=== PATIENT | female | born 1995 | race Caucasian/White ===

== ENCOUNTER 2016-09-03 05:03 | Inpatient (IN) | payer OTHER ==
[~2016-09-03] VITALS: Ht 160 cm; Wt 87.5 kg
[2016-09-03] MEDS ORDERED: Hemorrhage Kit, Post Partum XX ONE ×2 (08:20→21:30)
[2016-09-03] MEDS ORDERED: Ondansetron 2 mg/mL 2 mL Inj IVPUSH PRN ×2 (08:20→13:20)
[2016-09-03] MEDS ORDERED: Oxytocin 30 Units/500 mL LR 30 UNITS in IV Premix 1 EACH IV PRN ×2 (08:20→21:30)
[2016-09-03] MEDS ORDERED: Sodium Chloride LOK Flush 10 mL Syringe IVFLUSH PRN (08:20)
[2016-09-03] MEDS ORDERED: Oxytocin 10 Unit/mL Inj IM PRN ×2 (08:20→21:30)
[2016-09-03] MEDS ORDERED: fentaNYL-PF 50 mCg/mL 2 mL Inj IVPUSH PRN (08:20)
[2016-09-03] MEDS ORDERED: Lactated Ringer's 1,000 ML IV PRN (08:20)
[2016-09-03] MEDS ORDERED: Methylergonovine 0.2 mg/mL Inj IM PRN ×2 (08:20→21:30)
[2016-09-03] MEDS ORDERED: Carboprost 250 mCg/mL Inj IM PRN ×2 (08:20→21:30)
[2016-09-03 09:10] LABS: Mean Corpuscular Hemoglobin 27.6 pg (27.0-35.0); Mean Corpuscular Volume 83.7 fL (81-100)
[2016-09-03] MEDS ORDERED: PREN-12 PO (09:10)
--- NOTE | 2016-09-03 09:53 | PCM.HPOB ---
Subjective Referring Provider: Admitting Physician: Lesly Velasquez MD Primary Care Physician: Nopcp Attending Physician: Lesly Velasquez MD Chief Complaint Early labor History of Present History of Present Illness 20 yo at 39 weeks 6 days gestation presents to [facility] the morning of Sep 03 with contractions since 00:30 this morning. She did not feel her water break but feels wet on cervical exam and has confirmed ROM+ test. Cervical exam is relatively unchanged since her check in the office yesterday. Dilated to fingertip, 50% effaced, -3 station, soft, and very posterior. She desires epidural when indicated. She is not experiencing any vision changes or headache. OB History: (1), Para (0) Obstetrical Complications: None Past Medical History Gynecologic History: Chlamydia infection in first trimester, pt and partner treated, test of cure negative. Hx Tobacco Use: No Hx Alcohol Use: No Hx Substance Use: No Review of Systems Constitutional: Y: Dizziness, Weakness Eyes: Denies: Vision Changes Cardiovascular: Reports: Edema Respiratory: Denies: Cough Gastrointestinal: Denies: Nausea, Vomiting Allergy Coded Allergies: No Known Allergies (Unverified , 09/03/16) Exam Constitutional: Well-developed, Well-nourished HEENT: Atraumatic Lungs: Clear to Auscultation, Normal Air Movement Heart: Regular Rate/Rhythm, No Murmurs/Rubs/Gallops Abdomen: Gravid, No tenderness Extremities: Edema (+1) Neurological/Psychiatric: Alert, Oriented X3, Cooperative Neuro: Grossly Neurologically Intact Labs/Diagnostics Labs Blood type A+, antibody screen negative, GBS negative, Rubella equivocal, RPR non reactive, HBsAg negative, Hep C negative, HIV non reactive. Varicella Immune , HgbA1C 5.0, GC/CT negative, toxoplasmosis negative Ultra Sound Anatomy US normal Maternal Blood Type: A (+) Hx Rho(D) Immune Globulin: No Antibody Screen: neg Group B Strep Results: Negative Previous Infant with GBS: No Rubella: Equivocal OB Intrapartum Assessment/Plan Assessment 20 yo at 39 weeks 6 days gestation in early labor carroll every 2-5 minutes Pain Management: Epidural when desired and appropriate. Intrapartum plan Continue with expectant management. Augmentation of labor if necessary. Post plan: Continue routine post care Attending Statement at 39 weeks 6 days PROM. category 1 tracing. Will consider pitocin induction. ANAHI DE LA PAZ DO Sep 03, 2016 08:26 Lesly Velasquez MD Sep 03, 2016 17:14
--- NOTE | 2016-09-03 10:46 | PCM.PNOBIP ---
Subjective Date of Service Sep 03, 2016 Delivery plan: Spontaneous Vaginal Delivery Visit History 20 yo at 39 weeks 6 days gestation presents to [facility] the morning of Sep 03 with contractions since 00:30 this morning. She did not feel her water break but feels wet on cervical exam and has confirmed ROM+ test - so likely ROM around 7am. Subjective Feeling uncomfortable with continued contractions. No desired epidural yet. Group B Strep Results: Negative Rubella: Equivocal Blood Type: A (+) Labs Laboratory Tests 09/03/16 08:21: Hold Purple Top Tube Received 09/03/16 09:08: White Blood Count 13.8, Red Blood Count 4.17, Hemoglobin 11.5, Hematocrit 34.9, Mean Corpuscular Volume 83.7, Mean Corpuscular Hemoglobin 27.6, Mean Corpuscular Hemoglobin Concent 33.0, Red Cell Distribution Width 13.7, Platelet Count 268 Exam Vital Signs Vital Signs Contraction frequency in minutes: MVUs: Vital Signs: VS reviewed, stable (122/76 88 36.7) Heart Tracings Heart Tones Baseline 150 bpm Heart Rate Variability: Moderate Heart Rate Accelleration: Present Heart Rate Deceleration: Present (Variable < 1min with AROM with moderate variability and return to baseline.) Heart Rate Category: II Tocometry/IUPC Contraction frequency in minutes: MVUs: Sterile Vaginal Exam 1.5cm/80%/-3/soft/posterior. Forebag noted and ruptured with clear fluid noted. Exam General: Alert, Oriented X3, Cooperative Additional Information Bedside ultrasound confirms vertex presentation. OB Intrapartum Assessment/Plan Assessment 20 yo at 39 weeks 6 days gestation in labor with SROM of clear fluids Problems: (1) Active labor at term Status: Acute ICD Code: [id number] Intrapartum plan: Continue expected management Sundeep Fair MD Sep 03, 2016 10:46
[2016-09-03] MEDS ORDERED: Lactated Ringer's 500 ML IV ONE (13:17)
[2016-09-03] MEDS ORDERED: Lactated Ringer's 1,000 ML IV SCH ×2 (13:17→21:30)
--- NOTE | 2016-09-03 13:17 | PCM.HPANE ---
Patient Data Surgeon Admitting Provider:Lesly Velasquez MD Attending Provider:Lesly Velasquez MD Primary Care Physician:Priscilla Other Provider:Altagracia Ferro Anesthesia Reason for Visit Term Labor Check TERM LABOR CHECK Ht/WT & BMI Body Mass Index Allergies Coded Allergies: No Known Allergies (Unverified , 09/03/16) Medications Reported Medications Vit W-Ca,Fe,FA(<1 mg) ( Formula)1 Each Tablet1 Each PO DAILY 09/03/16 History Hx Alcohol Use: NoHx Substance Use: No Smoking Status: Never Smoker Stop/Bang Risk Assessment Category Category 1A: Patient has history of documented sleep apnea, and HAS NOT received any narcotic, sedative or anesthesia administration during this stay. Category 1B: Patient has history of documented sleep apnea, and HAS received any narcotic , sedative or anesthesia administration during this stay Category 2: Patient has SUSPECTED Obstructive Sleep Apnea, and HAS received any narcotic , sedative or anesthesia administration during this stay. Category 3: Patient has SUSPECTED Obstructive Sleep Apnea and HAS NOT received narcotic, sedative or anesthesia administration during this stay. Category 4: Outpatient in Procedural Areas with known sleep apnea or who screen positive for High Risk via the STOP/BANG questionnaire. Exam Exam General Appearance: Alert, Oriented X3, Cooperative, Moderate Distress HEENT/AIRWAY: MP 2 Lungs: Normal Air Movement Heart: Regular Rate/Rhythm Meds/Labs/Diagnostics Labs Test 09/03/16 08:21 09/03/16 09:08 Hold Purple Top Tube Received (Received) White Blood Count 13.8th/mm3 (3.8-10.1) Red Blood Count 4.17mil/mm3 (3.90-5.20) Hemoglobin 11.5g/dL (12.0-15.6) Hematocrit 34.9% (35.0-46.0) Mean Corpuscular Volume 83.7fL (81-100) Mean Corpuscular Hemoglobin 27.6pg (27.0-35.0) Mean Corpuscular Hemoglobin Concent 33.0% (32.0-37.0) Red Cell Distribution Width 13.7% (12.3-15.4) Platelet Count 268bil/L (150-400) Plan Impression Patient chart reviewed, patient interviewed and anesthestic plan with risks, benefits, and alternatives discussed, and informed consent obtained. ASA Physical Status: ASA1 Normal Healthy Anesthetic Plan: Epidural Bene/Risks/Altern/Consents: Yes HP Complete Prior to Induction: Yes Sarita Peña DO Sep 03, 2016 13:17
[2016-09-03] MEDS ORDERED: EPHEDrine Sulfate 50 mg/mL Inj IVPUSH PRN (13:20)
[2016-09-03] MEDS ORDERED: Atropine 1 mg/10 mL (Code) Syringe IVPUSH PRN (13:20)
[2016-09-03] MEDS ORDERED: fentaNYL 2 mCg/mL-Bupiv 0.125% 100 ML EPIDURAL SCH (13:20)
[2016-09-03] MEDS ORDERED: Benzocaine (Dermoplast) 20% 60 Gm Spray TOPICAL PRN (21:30)
[2016-09-03] MEDS ORDERED: LANOlin HPA 7 Gm Ointment TOPICAL PRN (21:30)
[2016-09-03] MEDS ORDERED: Witch Hazel-Glycerin Pads TOPICAL PRN (21:30)
[2016-09-04 06:28] LABS: Mean Corpuscular Hemoglobin 27.3 pg (27.0-35.0); Mean Corpuscular Volume 83.5 fL (81-100)
[2016-09-04] MEDS ORDERED: Measles-Mumps-Rubella Vaccine 0.5 mL Inj SUBQ ONE (08:30)
[2016-09-04] MEDS ORDERED: DOCU-41 PO (14:35)
[2016-09-04] MEDS ORDERED: IBUP-1827 PO (14:35)
--- NOTE | 2016-09-04 14:48 | PCM.DIOB ---
Obstetrical Disch Instruction Date of Service: Sep 04, 2016 Dates of Hospitalization Date of Hospital Admission Sep 03, 2016 at 07:37 Providers Admitting Physician: Lesly Velasquez MD Primary Care Physician: Priscilla Attending Physician: Lesly Velasquez MD Discharge Diagnosis Discharge Diagnosis Normal Spontaneous Vaginal Delivery Post Operative diagnosis Normal Spontaneous Vaginal Delivery Problems: (1) Active labor at term Status: Resolved ICD Code: [id number] Diet Discharge Diet: No restrictions Activity Discharge Activity-General: Pelvic Rest for 6 weeks, Balance rest and activity Dressing and Incisional Care Hygiene: May shower Additional Instructions Discharge Instructions Continue your vitamin. You may have constipation so you have also been given a prescription for docusate to keep you regular. Be sure to follow up in 6 weeks at [facility]. Pelvic rest for 6 weeks (nothing per vagina including intercourse, tampons) If you have a fever greater than 100.4, please call [facility]. There is always someone implementation project coordinator to talk to. If you have an increase in bleeding, call [facility]. If you have a lot of bleeding suddenly, especially if you have symptoms of dizziness & weakness with it, get emergency help. If you start experiencing extreme depression, especially if you feel that you are a danger to yourself or your family, seek emergency help. You have been through a lot -- BE SURE TO TAKE CARE OF YOURSELF. Follow Up Plan Follow-up Provider (F9): Lesly Velasquez MD Follow-up appointment: Weeks (6) Call your provider for: Fever or Chills, Shortness of breath, Heavy vaginal bleeding, Epigastric pain, Vaginal discomfort, Red painful breasts ANAHI DE LA PAZ DO Sep 04, 2016 14:48
--- NOTE | 2016-09-04 15:34 | PCM.PNOBPP ---
Subjective Date of Service Sep 04, 2016 Post : Spontaneous Vaginal Delivery Subjective 20 yo at 39 weeks 6 days gestation was admitted to [facility] the morning of Sep 03 with contractions. She likely had SROM around 0700 confirmed by a ROM+ positive test. Labor progressed and she delivered via at 1800. She did well overnight. This morning she is having normal lochia, feels sore but ibuprofen helps. She is breast feeding and plans to use the Mirena IUD for control post . She is not experiencing any vision changes, epigastric pain or headache. Lochia: Normal Pain Management: PO pain meds, Good Pain Control Gastrointestinal: Passing Flatus Postop Activity: Ambulating Independently Group B Strep Results: Negative Rubella: Equivocal Blood Type: A (+) RH Type: Positive Labs Laboratory Tests 09/03/16 08:21: Hold Purple Top Tube Received 09/04/16 05:45: White Blood Count 20.2, Red Blood Count 3.81, Hemoglobin 10.4, Hematocrit 31.8, Mean Corpuscular Volume 83.5, Mean Corpuscular Hemoglobin 27.3, Mean Corpuscular Hemoglobin Concent 32.7, Red Cell Distribution Width 14.0, Platelet Count 265 Exam Vital Signs Vital Signs BP 110/59 HR 96 98% O2 sat R 20 Vital Signs: VS reviewed, stable Exam Abdomen: Fundus firm : Voiding without difficulty Extremities: Edema 1+ Lungs: Clear to Auscultation, Normal Air Movement Heart: Regular Rate/Rhythm, No Murmurs/Rubs/Gallops General: Alert, Oriented X3, Cooperative, No Acute Distress OB Post Assessment/Plan Assessment 20 yo at 39 weeks 6 days gestation was admitted to [facility] the morning of Sep 03 with contractions. She likely had SROM around 0700 confirmed by a ROM+ positive test. Labor progressed and she delivered via at 1800. Meeting goals. Rubella equivocal will receive MMR vaccine before departure. Problems: (1) Vaginal delivery Plan: Routine care Status: Acute ICD Code: O80 (2) Active labor at term Status: Resolved ICD Code: [id number] Pain Evaluation: Adequate Pain Control Post plan: Continue routine post care, Discharge to [facility] status Plan: Rubella equivocal, MMR vaccine to be given. Attending Statement The patient was seen and examined together with Dr. Canales on 09/04/2016 and I agree with the history, exam and plan as outlined in the note above. / MD BRAIN Dietrich ERIKA R DO Sep 04, 2016 13:47 Sundeep Fair MD Sep 23, 2016 17:08
--- NOTE | 2016-09-04 15:40 | PCM.DC.OB ---
Obstetrical Discharge Summary Date of Service Sep 04, 2016 Date of hospital admission Sep 03, 2016 at 07:37 Date of Discharge: Sep 04, 2016 Providers Admitting Physician: Lesly Velasquez MD Primary Care Physician: Priscilla Attending Physician: Lesly Velasqeuz MD Diagnosis at Time of Discharge Normal Spontaneous Vaginal Deilvery Problems: (1) Vaginal delivery Status: Acute ICD Code: O80 (2) Active labor at term Status: Resolved ICD Code: [id number] Invasive procedures Normal Spontaneous Vaginal Deilvery Date of Procedure: Sep 03, 2016 Brief History and Physical: HPI at time of admission: 20 yo at 39 weeks 6 days gestation presents to [facility] the morning of Sep 03 with contractions since 00:30 this morning. She did not feel her water break but feels wet on cervical exam and has confirmed ROM+ test. Cervical exam is relatively unchanged since her check in the office yesterday. Dilated to fingertip, 50% effaced, -3 station, soft, and very posterior. She desires epidural when indicated. She is not experiencing any vision changes or headache. Exam on day of discharge: vital signs stable and normal, well-nourished well- appearing, heart regular rate and rhythm no murmurs, lungs clear to auscultation bilaterally with good air movement. Abdomen soft, uterine fundus firm. +1 edema in bilateral lower extremities. Appropriate mood and affect. Hospital Course: 20 yo at 39 weeks 6 days gestation was admitted to [facility] the morning of Sep 03 with contractions. She likely had SROM around 0700 confirmed by a ROM+ positive test. Labor progressed and she delivered via at 1800. She did well overnight and throughout the day. Mother discharged in stable condition to [facility]. Docusate Sodium (Colace) 100 Mg Capsule 100 MG PO DAILY PRN PRN For Constipation Prescribed by: ANAHI DE LA PAZ DO Ibuprofen (Ibuprofen) 600 Mg Tablet 600 MG PO Q6H PRN PRN For Mild Pain Prescribed by: ANAHI DE LA PAZ DO Vit W-Ca,Fe,FA(<1 mg) ( Formula) 1 Each Tablet 1 EACH PO DAILY (Reported) oxyCODONE-Acetaminophen 5-325 mg (oxyCODONE-Acetaminophen 5-325 mg) 1 Each Tablet 1 TAB PO Q6H PRN PRN For Pain Prescribed by: DUONG QUILES DO Disposition Discharge to board[place] status Follow-up plan 6 weeks in [facility]. Discharge Diet: No restrictions Discharge Activity-General: Pelvic Rest for 6 weeks, Balance rest and activity Patient instructions Continue your vitamin. You may have constipation so you have also been given a prescription for docusate to keep you regular. Be sure to follow up in 6 weeks at [facility]. Pelvic rest for 6 weeks (nothing per vagina including intercourse, tampons) If you have a fever greater than 100.4, please call [facility]. There is always someone service operations manager to talk to. If you have an increase in bleeding, call [facility]. If you have a lot of bleeding suddenly, especially if you have symptoms of dizziness & weakness with it, get emergency help. If you start experiencing extreme depression, especially if you feel that you are a danger to yourself or your family, seek emergency help. You have been through a lot -- BE SURE TO TAKE CARE OF YOURSELF. Attending Statement: The patient was seen and examined together with Dr. De La Paz on 09/04/2016 and I agree with the history, exam and plan as outlined in the note above. / MD BRAIN Dietrich ERIKA R DO Sep 04, 2016 15:40 Sundeep Fair MD Sep 23, 2016 17:08
--- NOTE | 2016-09-05 07:56 | PCM.ANEP1 ---
Post Anesthesia Phase 1 PACU Phase 1 Assessment Anesthetic Administered: Epidural Level of Alertness: Awake, talking CHARLTON's with Equal Strength: Yes Pain: No Pain Scale Score: 4 Oxygen Delivery: Room Air Lungs: Clear to Auscultation, Normal Air Movement Sarita Peña DO Sep 05, 2016 07:56
--- NOTE | 2016-09-05 07:56 | PCM.ANEP2 ---
Post Anesthesia Evaluation ASA/CMS Post Anesthesia VS in Patient's Normal Range?: Yes Resp Stable; Airway Patent?: Yes CV Function & Hydration Stable: Yes Mental Status Recovered?: Yes Pain control Satisfactory?: Yes N/V Control Satisfactory?: Yes Sarita Peña DO Sep 05, 2016 07:56
--- NOTE | 2016-10-18 22:18 | OP ---
[address] [address] OPERATIVE REPORT PATIENT: [facility] LEVINE : 1995 MR#: [id number] ADMIT: 09/03/2016 JOB ID: [id number] DATE OF SURGERY: 09/03/2016 DELIVERY SUMMARY: This is a 21-year-old female. She is 1, para 1 now, status post vaginal delivery. The patient presented to [facility] for active labor. She progressed spontaneously and progressed to full dilation at around 5 p.m. During labor, her tracing was reassuring. She got epidural for pain management. Patient had a good effort to push after she was fully dilated. The infant delivered at six o'clock after one hour of pushing. The infant was delivered at vertex position and there was one round nuchal cord which was tight , was clamped and cut during the delivery. Shoulder and chest delivered without difficulty. The score was 6 and 9. After infant delivered, the placenta delivered spontaneously completely, examined, has three-vessel cord. There was no perineal or vaginal laceration. There was 1 cm hematoma, was noticed after delivery. No enlargement with observation. The EBL during delivery was 150 cc. Patient tolerated delivery well. All instrument, needles, laps and gauzes counted correct twice. SURGEON: PREOPERATIVE DIAGNOSIS(ES): POSTOPERATIVE DIAGNOSIS(ES): MTDD
== END 2016-09-04 15:50 | disposition home or self-care (01) | DRG 775 ==
LOC: FBCO 05:03 → FBC 07:37
PROVIDERS: ADMIT Obstetrics & Gynecology; ATTEND Obstetrics & Gynecology
PROC: 10E0XZZ Delivery of Products of Conception, External Approach (ICD-10-PCS; principal; 2016-09-03)
DX: O80 Encounter for full-term uncomplicated delivery (principal); Z3A.39 39 weeks gestation of pregnancy; Z37.0 Single live birth

== ENCOUNTER 2016-09-08 06:25 | Emergency (ER) | payer OTHER ==
[~2016-09-08] VITALS: Ht 160 cm; Wt 81.8 kg
[~2016-09-08 06:25] MED LIST: DOCU-41 PO; IBUP-1827 PO; PREN-12 PO
[2016-09-08 06:28] VITALS: BP 121/87; PULSE 75; RESP 16; O2SAT 98
--- NOTE | 2016-09-08 07:32 | ED.REPORT ---
HPI-General Illness Date of Service Sep 08, 2016 ED Provider: Aneta Damian MD History of Present Illness: Patient is a 20 y.o. F with no prior past medical history presents to ED with for treatment of 3 day history of bilateral breast pain, worse on left. Patient delivered a healthy boy last via vaginal delivery with one nuchal chord. Breast pain began first in left and right breast pain began yesterday. Described as tender, warm, "brests feel like rocks" hard lumps felt in both breasts. Pain 10/10. Associated with blister and redness of breasts and nipples. Not relieved by pumping. Pumpped today and only had 1 ounce out of both brests. Started on Dicloxacillin on Tuesday. Milk produced is white in color, no blood or puss noted. Patient wishes to continue breast feeding up to 6 months. Denies fever, chills, headache, consitpation, diarrhea, dysuria, depression. Nursing Notes Stated Complaint: BREAST PAIN Chief Complaint: General Complaint Nursing Notes Reviewed: Yes Allergies: Coded Allergies: No Known Allergies (Unverified , 09/03/16) Scheduled Vit W-Ca,Fe,FA(<1 mg) ( Formula) 1 Each Tablet 1 EACH PO DAILY Scheduled PRN Docusate Sodium (Colace) 100 Mg Capsule 100 MG PO DAILY PRN PRN For Constipation Ibuprofen (Ibuprofen) 600 Mg Tablet 600 MG PO Q6H PRN PRN For Mild Pain General Time Seen by MD: 07:00 Chief Complaint Other (Bilateral breast pain) Onset Occurred: 3 days ago Symptom Duration: Since onset Location: : Chest (bilateral breast ) Quality: Aching, Dull, Throbbing Severity: Current: Severe Severity: Maximum: Severe Recent Healthcare: Recent hospitalization (Vaginal delivery) Past Medical History Past Medical History Notes: No other reported medical history Past Surgical History no reported surgical history Smoking History Never Smoker Social History Alcohol Use: Denies alcohol use Drug Use: Denies drug use Other Social History: Ambulatory Status Independent Review of Systems Full Review of Systems Constitutional: Denies: Chills, Fatigue, Fever, Lethargy, Malaise Eyes: Denies: Discharge left, Discharge right Ears / Nose / Throat: Reports: Nasal congestion Respiratory: Denies: Dyspnea on exertion, Non-productive cough Cardiovascular: Denies: Chest pain, Dyspnea on exertion GI: Reports: Nausea, Denies: Anorexia, Vomiting Female: Denies: Dysuria, Flank pain, Hematuria Hematologic: Reports Adenopathy Skin: Reports Rash, Reports Swelling Complete sys rev & neg: except as marked. Physical Exam Vital Signs Vital Signs Date Time Temp Pulse Resp B/P Pulse Ox O2 Delivery O2 Flow Rate FiO2 09/08/16 06:28 36.4 75 16 121/87 98 Room Air General/Constitutional: Well-developed, Well-nourished Head / Eyes: Atraumatic, Normocephalic, PERRL Respiratory: Breath sounds normal, Clear to auscultation, No respiratory distress Cardiovascular: Regular rate & rhythm, Heart sounds normal, Intact distal pulses Abdomen / GI: Soft, Non-tender, No guarding, No rebound, No distention Back: No CVA tenderness Extremities: Vascular intact, Neuro intact Skin: Warm, Dry, No cyanosis Neurologic: Alert, Oriented, Nonfocal Psychiatric: Mood/affect normal, Behavior normal, Normal thought content Breast: Positive: Erythema L (minimal), Erythema R (minimal), Skin changes L, Skin changes R (blister of right nipple), Swelling L (severe engorement), Swelling R (severe engorement), Tenderness L, Tenderness R Interpretation & Diagnostics Lab Results Interpretation Result Diagram: 09/08/16 0752 09/08/16 0752 Test 09/08/16 07:52 White Blood Count 10.3th/mm3 (3.8-10.1) Red Blood Count 4.16mil/mm3 (3.90-5.20) Hemoglobin 11.4g/dL (12.0-15.6) Hematocrit 34.8% (35.0-46.0) Mean Corpuscular Volume 83.7fL (81-100) Mean Corpuscular Hemoglobin 27.4pg (27.0-35.0) Mean Corpuscular Hemoglobin Concent 32.8% (32.0-37.0) Red Cell Distribution Width 14.3% (12.3-15.4) Platelet Count 360bil/L (150-400) Neutrophils (%) (Auto) 67.3% (40-74) Lymphocytes (%) (Auto) 17.5% (14-46) Monocytes (%) (Auto) 8.6% (4-12) Eosinophils (%) (Auto) 5.5% (0-5) Basophils (%) (Auto) 0.2% (0-3) Sodium Level 137mEq/L (134-144) Potassium Level 3.9mEq/L (3.5-5.2) Chloride Level 100mEq/L (97-108) Carbon Dioxide Level 21mmol/L (18-29) Blood Urea Nitrogen 9mg/dL (6-20) Creatinine 0.49mg/dL (0.57-1.00) Estimat Glomerular Filtration Rate 228mL/min (>59) Glucose Level 117mg/dL (60-99) Calcium Level 9.2mg/dL (8.5-10.1) Total Bilirubin 0.3mg/dL (0.0-1.2) Aspartate Amino Transf (AST/SGOT) 30U/L (0-50) Alanine Aminotransferase (ALT/SGPT) 28U/L (0-32) Alkaline Phosphatase 104U/L (25-150) Total Protein 7.1g/dL (6.4-8.4) Albumin 3.8g/dL (3.4-5.0) Re-Eval/Medical Decision Med Decision/Clinical Course Patient is a 20 y.o. F with no prior past medical history presents to ED with for treatment of 3 day history of bilateral breast pain, worse on left. There is significant bilateral brest engorgement, little to no let down of milk bilaterally. There are no signs presently of abscess and she is on adequate antibiotic therapy. Patient will likley need consultation and a hospital breast pump to allow for adequate let down. Observe in ED, manage pain, while await lactaion consultaiton and DDx Bilateral mastitis, breast engorgement, abscess, ductal cyst, breast feeding problems, 30 mg IV Ketorlac for pain 1 mg Hydromorphone IV for pain wiht 0.5 mg push Q15 PRN consultation ordered Time of Eval: 09:30 Patient Status: Condition improved Re-Evaluation/Progress Note: Patients pain is undercontrol, V/S stable Discharge & Departure Primary Impression: Mastitis, Additional Impressions: Ineffective breast feeding Encounter for breast feeding counseling Engorgement of breast Disposition: Home Discharge Condition All VS Reviewed: Yes Condition: Stable Additional Instructions: During you visit to [facility] Emergency Department we obtained blood work for infectious markers, hemoglobin levels, and electrolytes. We obtained a consultation and a hospital grade breast pump to help with letdown of breast milk. All your lab values were within normal limits and your imaging showed no acute processes or abnormalities. Your vital signs were stable and safe for discharge. Finish the remainder of your antibiotics as directed. We will send you home with - Continue pain medications given post - 5-325 mg Percocet by mouth every 6 hours as needed for pain. Do not exceed 30 mg per day. The narcotic pain medication is in part secreted through breast milk. As discussed the pain medication's takes approximately 1.5 hours to break down to half of the starting dose. While taking this medication it is recommended you do not breast feed. If you choose to continue breast feeding it is recommended that that you pump and dump up to 8 hours prior to resuming breast feeding. Monitor your child for signs of increased fatigue,breathing difficulty, limpness of extremities. If you notice any of these symptoms stop breast feeding, stop medication, seek emergency medical care. - Referral to outpatient consultation to be completed today. Do not hesitate to call emergency services or your primary care physician if you experience any of the following. - High unrelenting fevers. - Uncontrolled vomiting. - Severe hypertension. - Syncope or loss of consciousness. - Chest pain or severe shortness of breath. Follow up with your primary care physician in 1-2 weeks time following your emergency department visit for medication checks and general well-being. Referrals: OTHER,PHYSICIAN (PCP) (Family) Attending Statement Patient seen and examined. Currently on antibiotics for mastitis which is very appropriate improving. Severe breast engorgement. Pain controlled sent to labor and delivery for consult. Like to nurse for at least 6 months and would like very much be able to support that DUONG QUILES DO Sep 08, 2016 07:24 Aneta Damian MD Sep 08, 2016 09:57
[2016-09-08] MEDS ORDERED: 0.9% Sodium Chloride 1,000 ML IV ONE ×2 (07:33→07:45)
[2016-09-08] MEDS ORDERED: Ondansetron 2 mg/mL 2 mL Inj IVPUSH ONE (07:35)
[2016-09-08] MEDS ORDERED: Ondansetron 2 mg/mL 2 mL Inj IVPUSH PRN (07:45)
[2016-09-08] MEDS ORDERED: HYDROmorphone 1 mg/mL Inj IVPUSH ONE (07:45)
[2016-09-08] MEDS ORDERED: HYDROmorphone 0.5 mg/0.5 mL iSecure Syringe IVPUSH PRN (07:45)
[2016-09-08 08:04] LABS: BASOPHILS % (AUTO) 0.2 % (0-3); EOSINOPHILS % (AUTO) 5.5 % (0-5); MONOCYTES % (AUTO) 8.6 % (4-12); Mean Corpuscular Hemoglobin 27.4 pg (27.0-35.0); Mean Corpuscular Volume 83.7 fL (81-100); NEUTROPHILS % (AUTO) 67.3 % (40-74); Platelet Count 360 bil/L (150-400)
[2016-09-08] MEDS ORDERED: OXYC1TAB24 PO (10:10)
[2016-09-08 10:17] VITALS: BP 132/75; PULSE 64; RESP 16; O2SAT 99
== END 2016-09-08 10:18 | disposition home or self-care (01) ==
LOC: SED 06:25
DX: O92.79 Other disorders of lactation (principal); N61.0 Mastitis without abscess; Z32.2 Encounter for childbirth instruction
CPT/HCPCS: 36415; 80053; 85025; 96374; 96375; 99284; J1170; J2405; J7030